=== PATIENT | male | born 1990 | race Caucasian/White ===

== ENCOUNTER 2017-02-01 13:42 | Emergency (ER) | payer MEDICAID, OTHER ==
[~2017-02-01] VITALS: Ht 175.3 cm; Wt 84.6 kg
[2017-02-01 13:44] VITALS: BP 138/82; PULSE 84; RESP 20; TEMP 98.6; O2SAT 99
[2017-02-01] MEDS ORDERED: LIDOCAINE HCL 1% 50 ML VIAL INFIL ONE (14:15)
[2017-02-01] MEDS ORDERED: LIDOCAINE HCL 1% PF 30 ML VIAL INFIL ONE (14:15)
[2017-02-01] MEDS ORDERED: CEPH-460 PO (14:30)
--- NOTE | 2017-02-01 14:30 | PD ---
HPI Chief Complaint: Foreign Body Time Seen by Provider: 14:00 Travel History International Travel<30 days: No Contact w/Intl Traveler<30days: No Traveled to known affect area: No History of Present Illness HPI 26-year-old male presents emergency department with fishing hook in right third digit. Patient reports he was attempting to remove the hook from a fish's mouth when the hook became embedded within the finger. He was unable to remove the hook on his own. He reports pain at the site, nonradiating, worse with movement, severity 3-10. He denies numbness or tingling in the digit tetanus status up-to-date.. PFSH Past Medical History Medical History: Denies Significant Hx Influenza Vaccination: No Past Surgical History Appendectomy: Yes Social History Alcohol Use: No Tobacco Use: No Substance Use: No Allergies-Medications (Allergen,Severity, Reaction): Coded Allergies: No Known Allergies (Unverified , 02/01/17) Reported Meds & Prescriptions Reported Meds & Active Scripts Active Keflex (Cephalexin) 500 Mg Cap 500 Mg PO Q6H Review of Systems Except as stated in HPI: all other systems reviewed are Neg Physical Exam Narrative GENERAL: Well-nourished, well-developed patient. SKIN: Focused skin assessment warm/dry. [place] jayson embedded within the right third digit fingertip pad. HEAD: Normocephalic. EYES: No scleral icterus. No injection or drainage. NECK: Supple, trachea midline. No JVD or lymphadenopathy. CARDIOVASCULAR: Regular rate and rhythm without murmurs, gallops, or rubs. RESPIRATORY: Breath sounds equal bilaterally. No accessory muscle use. GASTROINTESTINAL: Abdomen soft, non-tender, nondistended. MUSCULOSKELETAL: No cyanosis, or edema. BACK: Nontender without obvious deformity. No CVA tenderness. Data Data Last Documented VS Vital Signs Date Time Temp Pulse Resp B/P Pulse Ox O2 Delivery O2 Flow Rate FiO2 02/01/17 13:44 98.6 84 20 138/82 99 Orders Lidocaine Pf 1% Inj (Xylocaine-Mpf 1% In (02/01/17 14:15) [facility] Medical Decision Making Medical Screen Exam Complete: Yes Emergency Medical Condition: Yes Differential Diagnosis Puncture wound caused by fishing hook Narrative Course 26-year-old male percents emergency department for removal of fishhook right third digit. Injury occurred approximately 30 minutes prior to arrival. The digit is neurovascularly intact. The hook was removed using push through method. Patient tolerated procedure well. Procedures Procedure Narrative Digital block right third digit using 2 mL's 1% lidocaine. [place] removal using pushed through method performed by Dr. Montemayor. Diagnosis Primary Impression: [place] injury to finger Qualified Code: S69.91XA - [place] injury to finger, right, initial encounter Referrals: Primary Care Physician Additional Instructions: Keep the area clean and dry. Take the antibiotics as prescribed. Return to the emergency department if he develops increasing pain, redness, swelling, drainage from the site. Follow-up with her primary care doctor for reevaluation. Scripts Cephalexin (Keflex)500 Mg [id number] Mg PO Q6H #28 CAP Prov:Leyla Adams 02/01/17 Disposition: 01 DISCHARGE HOME Condition: Stable Leyla Adams Feb 01, 2017 14:30
== END 2017-02-01 14:45 | disposition home or self-care (01) ==
LOC: PHEFT 13:42
DX: S61.242A Puncture wound with foreign body of right middle finger without damage to nail, initial encounter (principal); W45.8XXA Other foreign body or object entering through skin, initial encounter
CPT/HCPCS: 10120